=== PATIENT | female | born 1955 | race Caucasian/White ===

== ENCOUNTER 2016-11-16 07:42 | Day surgery (SDC) | payer OTHER ==
[~2016-11-16] VITALS: Ht 154.9 cm; Wt 71.1 kg
[2016-11-16 08:51] VITALS: Ht 154.9 cm; Wt 71.1 kg
[2016-11-16] MEDS ORDERED: AMLODIPINE PO (09:02)
[2016-11-16] MEDS ORDERED: GEMFIBROZIL PO (09:02)
[2016-11-16] MEDS ORDERED: CARBAMAZEPINE PO (09:02)
[2016-11-16] MEDS ORDERED: LOSARTAN PO (09:02)
--- NOTE | 2016-11-16 11:05 | OPPN ---
Date/Time of Note Date/Time of Note DATE: 11/16/16 TIME: 11:03 Operative Report Preoperative Diagnosis Positive occult blood in stool Postoperative Diagnosis Large sigmoid colon polyp 3 small sigmoid colon polyps Internal hemorrhoids Operation/Procedure Performed Colonoscopy and polypectomy Clipping of the polypectomy site the sigmoid colon Anesthesia: other Estimated blood loss: none Specimens Sigmoid polyps Complications: None DRE MATTHEWS MD Nov 16, 2016 11:05
[2016-11-16] MEDS ORDERED: FENTAnyl 50 MCG/ML VIAL ONE (11:14)
[2016-11-16] MEDS ORDERED: MIDAZOLAM 1 MG/ML 2 ML INJ ONE (11:15)
[2016-11-16 11:28] VITALS: BP 145/59; PULSE 67; RESP 18
--- NOTE | 2016-11-16 11:55 | GILP ---
DATE OF PROCEDURE: 11/16/2016 PROCEDURE PERFORMED: 1. Colonoscopy and polypectomy. 2. Stripping of the polypectomy site to prevent bleeding. INDICATION: Ms. Lis Velazquez is a 61-year-old female patient who had positive occult blood in stool. The patient was scheduled for colonoscopy for further evaluation. The procedure and possible complications were well-explained to the patient. The patient understood and consented to the procedure. DESCRIPTION OF PROCEDURE: Under the influence of fentanyl and Versed, the colonoscope was carefully introduced in the rectum. Under direct vision it was advanced all the way to the cecum. FINDINGS: The patient had a large sigmoid colon polyp and it was removed using the snare and electrocautery. Stripping of the polypectomy site was done to prevent bleeding because of the thick polyp stalk. The patient also had 3 other sigmoid colon polyps and one of them was removed using the snare and electrocautery. The other 2 with biopsy forceps. She was noted to have internal hemorrhoids. She tolerated the procedure very well. There was no complication from the procedure. At the end of procedure she was awake with stable vital signs and she was discharged home in care of her family. IMPRESSION: 1. Colonoscopy all the way to the cecum. 2. Large sigmoid colon polyp was removed. Using the snare and electrocautery. 3. Stripping of the polypectomy site was done to prevent bleeding because of the thick stalk. 4. Three other small sigmoid colon polyps were removed using the snare and electrocautery as well as biopsy forceps. 5. Internal hemorrhoids. PLAN: 1. Await histopathology report. 2. Next screening colonoscopy in 5 years. Dictated By: MD HUNG Sesay/santi/sergei /Document#: [id number]
== END 2016-11-16 17:22 | disposition home or self-care (01) ==
LOC: GIL 07:42
PROVIDERS: ATTEND Internal Medicine Gastroenterology
DX: K92.1 Melena (principal); D12.5 Benign neoplasm of sigmoid colon; K64.8 Other hemorrhoids; I10 Essential (primary) hypertension
CPT/HCPCS: 45380; 45385; 88305; J2250; J3010; Z7610